=== PATIENT | female | born 1990 | race Caucasian/White ===

== ENCOUNTER 2019-04-09 07:31 | Emergency (ER) | payer OTHER ==
[~2019-04-09] VITALS: Ht 154.9 cm; Wt 79.5 kg
[~2019-04-09 07:31] MED LIST: [UNRECOGNIZED DRUG - REMARK]
[2019-04-09 09:11] VITALS: BP 118/87
== END 2019-04-09 09:11 | disposition home or self-care (01) ==
LOC: EMS 07:32
DX: H60.92 Unspecified otitis externa, left ear (principal)